=== PATIENT | male | born 1970 | race Caucasian/White ===

== ENCOUNTER 2020-07-08 11:11 | Day surgery (SDC) | payer BC ==
[2020-07-07 12:04] VITALS: BMI 32.3
--- OUTSIDE RECORDS SUMMARY | 2020-07-08 11:44 | XMS ---
:1970 Author Organization [facility] Support Name Relationship Address Phone [facility] [place] [address] BILLY RITCHIE [address] [place] [address] Re-disclosure Warning The records that you are about to access may contain information from federally- assisted alcohol or drug abuse programs. If such information is present, then the following federally mandated warning applies: This information has been disclosed to you from records protected by federal confidentiality rules (42 CFR part 2). The federal rules prohibit you from making any further disclosure of this information unless further disclosure is expressly permitted by the written consent of the person to whom it pertains or as otherwise permitted by 42 CFR part 2. A general authorization for the release of medical or other information is NOT sufficient for this purpose. The Federal rules restrict any use of the information to criminally investigate or prosecute any alcohol or drug abuse patient.The records that you are about to access may contain highly sensitive health information, the redisclosure of which is protected by Article 27-F of the [facility] Public Health law. If you continue you may haveaccess to information: Regarding HIV / AIDS; Provided by facilities licensed or operated by the [facility] Office of Mental Health; or Provided by the [facility] Office for People With Developmental Disabilities. If such information is present, then the following [facility] mandated warning applies: This information has been disclosed to you from confidential records which are protected by state law. State law prohibits you from making any further disclosure of this information without the specific written consent of the person to whom it pertains, or as otherwise permitted by law. Any unauthorized further disclosure in violation of state law may result in a fine or halfway sentence or both. A general authorization for the release of medical or other information is NOT sufficient authorization for further disclosure. Insurance Providers Payer name Policy type / Policy ID Covered Covered constitution party's Policy Plan Coverage type constitution party ID relationship to [employer] Information [employer] PPO [id number] SP [id number] Results ID Date Data Source [id number] 07/04/2020 11:15:00 AM EDT [facility] Name Value Range Interpretation Description Data Sup porting Code Source(s) Document(s ) SARS [facility] coronavirus 2 RNA This lab was ordered by DASHA CHACON and reported by [facility]. ID Date Data Source [id number] 06/13/2020 01:56:00 AM EDT [facility] Name Value Range Interpretation Code Description Data Nona rce(s) Supporting Document(s ) SARS-COV-2 [facility] QL JUDY+PROBE This lab was ordered by HECTOR stovall nd reported by [facility]. Procedure
[2020-07-08] MEDS ORDERED: PROPOFOL 20 ML ONE ×3 (11:47)
[2020-07-08] MEDS ORDERED: LIDOCAINE HCL/PF 2% SDV 5ML VIAL ONE (11:47)
[2020-07-08 12:39] VITALS: TEMP 98
[2020-07-08 13:12] VITALS: BP 142/90; PULSE 75
== END 2020-07-08 13:30 | disposition home or self-care (01) ==
LOC: FASU-ENDO 11:11
PROVIDERS: ATTEND Internal Medicine Gastroenterology
PROC: 0DJD8ZZ Inspection of Lower Intestinal Tract, Via Natural or Artificial Opening Endoscopic (ICD-10-PCS; principal; 2020-07-08 11:45)
DX: Z12.11 Encounter for screening for malignant neoplasm of colon (principal); K64.2 Third degree hemorrhoids